=== PATIENT | female | born 1945 | race Caucasian/White ===

== ENCOUNTER 2016-05-13 10:08 | Emergency (ER) | payer MEDICARE ==
[2016-05-13 10:33] VITALS: BP 122/61
--- NOTE | 2016-05-13 12:03 | UC ---
Abdominal Pain Female HPI - HPI Summary HPI Summary: pt presents with c/o of abdominal pain that began 3 weeks ago. Pt was hospitalized at [facility] from 04/28/16 -04/30/16. Pt had prescription for 3 days post hospitalization. reports that her stools have been soft, no blood or mucous, denies fever, vomiting, or nausea. - History of Current Complaint Chief Complaint: UC Stated Complaint: ABD PAIN Time Seen by Provider: 05/13/16 11:19 Hx Obtained From: Patient ?: No Onset/Duration: Gradual Onset, Lasting Weeks Timing: Constant Severity Initially: Mild Severity Currently: Moderate Location: Discrete At: RLQ, Discrete At: LLQ Radiates: Yes Radiates to: RLQ Character: Colicy, Cramping, Dull, Sharp Alleviating Factor(s): Nothing Associated Signs and Symptoms: Positive: Back Pain Allergies/Adverse Reactions: Allergies Allergy/AdvReac Type Severity Reaction Status Date / Time Atorvastatin [From Lipitor] Allergy Severe Muscle Verified 04/16/15 16:57 Ache, Fentanyl Allergy Intermediate Hives Verified 04/16/15 16:57 Iodinated Contrast Media Allergy Intermediate Hives Verified 04/16/15 16:57 [IV CONTRAST DYE] Levofloxacin [From Levaquin] Allergy Intermediate Hives Verified 04/16/15 16:57 Meperidine [From Demerol HCl] Allergy Intermediate Hives Verified 04/16/15 16:57 Home Medications: Home Medications Metoprolol Succinate XL TAB* [Toprol XL TAB*] 50 mg PO DAILY 05/13/16 [History Confirmed 05/13/16] PMH/Surg Hx/FS Hx/Imm Hx Previously Healthy: No - no see PMH Endocrine History Of: Denies: Diabetes, Thyroid Disease Cardiovascular History Of: Reports: Hypertension Denies: Cardiac Disorders Respiratory History Of: Denies: Asthma GI/ History Of: Reports: Gastroesophageal Reflux, Diverticulitis - required hospitalization x 2 last year Neurological History Of: Reports: Migraine - OCCASIONALLY DOES NOT LAST LONG Denies: TIA Psychological History Of: Reports: Depression - ON MEDICATION Denies: Anxiety Cancer History Of: Denies: Lung Cancer - Surgical History Surgical History: Yes Surgery Procedure, Year, and Place: Cholecystectomy. APPENDECTOMY. tubal - Family History Known Family History: Positive: Cardiac Disease - Social History Occupation: Retired Lives: With Family Alcohol Use: Occasionally Substance Use Type: None Smoking Status (MU): Former Smoker Type: Cigarettes Amount Used/How Often: 1/2 PPD Length of Time of Smoking/Using Tobacco: 10 Years Have You Smoked in the Last Year: No When Did the Patient Quit Smoking/Using Tobacco: early - Immunization History Most Recent Influenza Vaccination: April 2015 Most Recent Tetanus Shot: 06/04/13 Review of Systems Constitutional: Fatigue Skin: Negative Eyes: Negative ENT: Negative Respiratory: Negative Cardiovascular: Negative Gastrointestinal: Abdominal Pain Genitourinary: Negative Motor: Negative Neurovascular: Negative Musculoskeletal: Myalgia - low back Neurological: Negative Psychological: Negative All Other Systems Reviewed And Are Negative: Yes Physical Exam Triage Information Reviewed: Yes Appearance: Pain Distress - mild Vital Signs: Initial Vital Signs Temp 98.7 F 05/13/16 10:25 Pulse 70 05/13/16 10:25 Resp 16 05/13/16 10:25 BP 122/61 05/13/16 10:25 Pulse Ox 98 05/13/16 10:25 Vital Signs Reviewed: Yes Neck exam: Normal Respiratory Exam: Normal Cardiovascular Exam: Normal Abdominal Exam: Other Abdomen Description: Positive: Guarding - LLQ, Other: - tenderness LLQ, RLQ Musculoskeletal Exam: Normal Neurological Exam: Normal Psychological Exam: Normal Skin Exam: Normal Abd Pain Female Course/Dx - Course Course Of Treatment: I discussed with the pt the concern for possible diverticulum abscess or worsening of diverticulosis and recommended to be evaluated at the closest ER. Pt agreed and stated she would go by private car. - Differential Dx/Diagnosis Provider Diagnoses: abdominal pain. worsening of diverticulitis - Physician Notification/Consults Discussed Patient Care With: Silvia Parada at [facility] Time Discussed With Above Provider: 12:06 - pt was accpeted at [facility] Instructed by Provider To: Other - pt refused ambulance and will travel by private car Discharge - Discharge Plan Condition: Stable Disposition: AGAINST MEDICAL ADVICE Patient Education Materials: Abdominal Pain (ED) Referrals: Bina Boggs [Primary Care Provider] - Additional Instructions: It has been recommended that you seek more advanced care at the closes Emergency room. The medical history you have provided and your presenting physical findings indicate that you need further testing and possible treatment at a higher level of care facility.
== END 2016-05-13 12:00 | disposition left against medical advice (07) ==
LOC: UCCORT 10:08
DX: K57.92 Diverticulitis of intestine, part unspecified, without perforation or abscess without bleeding (principal); R10.32 Left lower quadrant pain; R10.31 Right lower quadrant pain; Z88.5 Allergy status to narcotic agent; Z88.8 Allergy status to other drugs, medicaments and biological substances; Z91.041 Radiographic dye allergy status; I10 Essential (primary) hypertension; Z90.49 Acquired absence of other specified parts of digestive tract; Z87.891 Personal history of nicotine dependence
CPT/HCPCS: 99212; G0463

== ENCOUNTER 2016-06-27 09:15 | Emergency (ER) | payer MEDICARE ==
[2016-06-27 10:35] VITALS: BP 154/82
--- NOTE | 2016-06-27 11:30 | UC ---
FLU HPI - HPI Summary HPI Summary: BODY ACHES, COUGH, CHILLS, FULLNESS IN EARS AND THROAT DISCOMFORT WITH COUGHING. NO FEVER, AND GRANDSON HAVE HAD POSITIVE FLU SWABS - History of Current Complaint Chief Complaint: UCRespiratory Stated Complaint: SORE THROAT,SINUS,COUGH Time Seen by Provider: 06/27/16 10:53 Hx Obtained From: Patient Onset/Duration: Sudden Onset, Lasting Days, Still Present Severity Currently: Moderate Severity Initially: Moderate Associated Signs & Symptoms: Positive: F/C, Myalgia, Cough, Sore Throat, Nasal Congestion Related Hx: Possible Flu/Infectious Exposure - Risk Factors Influenza Risk Factors: Negative - Allergy/Home Medications Allergies/Adverse Reactions: Allergies Allergy/AdvReac Type Severity Reaction Status Date / Time Atorvastatin [From Lipitor] Allergy Severe Muscle Verified 06/27/16 10:24 Ache, Fentanyl Allergy Intermediate Hives Verified 06/27/16 10:24 Iodinated Contrast Media Allergy Intermediate Hives Verified 06/27/16 10:24 [IV CONTRAST DYE] Levofloxacin [From Levaquin] Allergy Intermediate Hives Verified 06/27/16 10:24 Meperidine [From Demerol HCl] Allergy Intermediate Hives Verified 06/27/16 10:24 Home Medications: Home Medications Ibuprofen TAB* [Advil TAB*] 600 mg PO Q4H PRN 06/27/16 [History Confirmed ] PMH/Surg Hx/FS Hx/Imm Hx Previously Healthy: Yes Endocrine History Of: Denies: Diabetes, Thyroid Disease Cardiovascular History Of: Reports: Hypertension Denies: Cardiac Disorders Respiratory History Of: Denies: Asthma GI/ History Of: Reports: Gastroesophageal Reflux, Diverticulitis - required hospitalization x 2 last year Neurological History Of: Reports: Migraine - OCCASIONALLY DOES NOT LAST LONG Denies: TIA Psychological History Of: Reports: Depression - ON MEDICATION Denies: Anxiety Cancer History Of: Denies: Lung Cancer - Surgical History Surgical History: Yes Surgery Procedure, Year, and Place: Cholecystectomy. APPENDECTOMY. tubal - Family History Known Family History: Positive: Cardiac Disease - Social History Occupation: Employed Full-time Lives: With Family Alcohol Use: Occasionally Substance Use Type: None Smoking Status (MU): Former Smoker Type: Cigarettes Amount Used/How Often: 1/2 PPD Length of Time of Smoking/Using Tobacco: 10 Years Have You Smoked in the Last Year: No When Did the Patient Quit Smoking/Using Tobacco: early - Immunization History Most Recent Influenza Vaccination: April 2015 Most Recent Tetanus Shot: 06/04/13 Review of Systems Constitutional: Chills Skin: Negative Eyes: Negative ENT: Sore Throat, Ear Ache, Nasal Discharge Respiratory: Cough Cardiovascular: Negative Gastrointestinal: Negative Genitourinary: Negative Motor: Negative Neurovascular: Negative Musculoskeletal: Myalgia Neurological: Negative Psychological: Negative All Other Systems Reviewed And Are Negative: Yes Physical Exam Triage Information Reviewed: Yes Appearance: No Pain Distress, Well-Nourished, Ill-Appearing - MILD Vital Signs: Initial Vital Signs Temp 98.3 F 06/27/16 10:26 Pulse 68 06/27/16 10:26 Resp 18 06/27/16 10:26 BP 154/82 06/27/16 10:26 Pulse Ox 100 06/27/16 10:26 Vital Signs Reviewed: Yes Eye Exam: Normal Eyes: Positive: Conjunctiva Clear ENT: Positive: Hearing grossly normal, Pharynx normal, Nasal congestion, TM bulging, TM dull Dental Exam: Normal Neck exam: Normal Neck: Positive: Supple, Nontender, No Lymphadenopathy Respiratory Exam: Normal Respiratory: Positive: Chest non-tender, Lungs clear, Normal breath sounds, No respiratory distress, No accessory muscle use Cardiovascular Exam: Normal Cardiovascular: Positive: RRR, No Murmur, Pulses Normal Abdominal Exam: Normal Abdomen Description: Positive: Nontender, No Organomegaly Musculoskeletal Exam: Normal Musculoskeletal: Positive: Strength Intact Neurological Exam: Normal Psychological Exam: Normal Psychological: Positive: Normal Response To Family Skin Exam: Normal Flu Course/Dx - Differential Dx/Diagnosis Differential Diagnosis/HQI/PQRI: Influenza, RSV, Upper Respiratory Infection Provider Diagnoses: INFLUENZA Discharge - Discharge Plan Condition: Stable Disposition: HOME Prescriptions: Oseltamivir CAP* [Tamiflu CAP*] 75 mg PO BID #10 cap Patient Education Materials: Influenza (ED) Referrals: Bina Boggs [Primary Care Provider] -
== END 2016-06-27 11:32 | disposition home or self-care (01) ==
LOC: UCCORT 09:15
DX: J11.1 Influenza due to unidentified influenza virus with other respiratory manifestations (principal); Z88.1 Allergy status to other antibiotic agents; Z88.5 Allergy status to narcotic agent; Z88.8 Allergy status to other drugs, medicaments and biological substances; Z91.041 Radiographic dye allergy status; Z90.49 Acquired absence of other specified parts of digestive tract; Z87.891 Personal history of nicotine dependence
CPT/HCPCS: 99212; G0463

== ENCOUNTER 2016-07-04 10:06 | Emergency (ER) | payer MEDICARE ==
[2016-07-04 11:14] VITALS: BP 152/80
--- NOTE | 2016-07-04 11:29 | UC ---
Ear Complaint HPI - HPI Summary HPI Summary: Stubbing pain in right side of head just above ear, fleeting episodes of stabbing discomfort for 3 days, recently had flu and d/c tamiflu on Saturday - History of Current Complaint Chief Complaint: UCEar Stated Complaint: HEAD/RIGHT EAR PAIN Time Seen by Provider: 07/04/16 11:17 Hx Obtained From: Patient ?: No Onset/Duration: Sudden Onset, Lasting Days - 3, Still Present Severity Initially: Moderate Severity Currently: Moderate Pain Intensity: 8 Pain Scale Used: 0-10 Numeric Aggravating Factors: Nothing Alleviating Factors: Nothing Associated Signs/Symptoms: Negative: Discharge, Hearing Loss, Foreign Body Sensation, Trauma to Ear, Swelling @, URI Symptoms - Allergies/Home Medications Allergies/Adverse Reactions: Allergies Allergy/AdvReac Type Severity Reaction Status Date / Time Atorvastatin [From Lipitor] Allergy Severe Muscle Verified 07/04/16 11:09 Ache, Fentanyl Allergy Intermediate Hives Verified 07/04/16 11:09 Iodinated Contrast Media Allergy Intermediate Hives Verified 07/04/16 11:09 [IV CONTRAST DYE] Levofloxacin [From Levaquin] Allergy Intermediate Hives Verified 07/04/16 11:09 Meperidine [From Demerol HCl] Allergy Intermediate Hives Verified 07/04/16 11:09 PMH/Surg Hx/FS Hx/Imm Hx Previously Healthy: No Endocrine History Of: Denies: Diabetes, Thyroid Disease Cardiovascular History Of: Reports: Hypertension Denies: Cardiac Disorders Respiratory History Of: Denies: Asthma GI/ History Of: Reports: Gastroesophageal Reflux, Diverticulitis - required hospitalization x 2 last year Neurological History Of: Reports: Migraine - OCCASIONALLY DOES NOT LAST LONG Denies: TIA Psychological History Of: Reports: Depression - ON MEDICATION Denies: Anxiety Cancer History Of: Denies: Lung Cancer - Surgical History Surgical History: Yes Surgery Procedure, Year, and Place: Cholecystectomy. APPENDECTOMY. tubal - Family History Known Family History: Positive: Cardiac Disease - Social History Occupation: Retired Lives: With Family Alcohol Use: Occasionally Substance Use Type: None Smoking Status (MU): Former Smoker Type: Cigarettes Amount Used/How Often: 1/2 PPD Length of Time of Smoking/Using Tobacco: 10 Years Have You Smoked in the Last Year: No When Did the Patient Quit Smoking/Using Tobacco: early - Immunization History Most Recent Influenza Vaccination: April 2015 Most Recent Tetanus Shot: 06/04/13 Review of Systems Constitutional: Negative Skin: Negative, Other - no rash present Eyes: Negative ENT: Negative Respiratory: Negative Cardiovascular: Negative Gastrointestinal: Negative Genitourinary: Negative Motor: Negative Neurovascular: Negative Musculoskeletal: Negative Neurological: Headache - right side of head just above pinna Psychological: Negative All Other Systems Reviewed And Are Negative: Yes Physical Exam Triage Information Reviewed: Yes Appearance: Well-Appearing, Well-Nourished, Pain Distress Vital Signs: Initial Vital Signs Temp 97.7 F 07/04/16 11:04 Pulse 67 07/04/16 11:04 Resp 14 07/04/16 11:04 BP 152/80 07/04/16 11:04 Pulse Ox 95 07/04/16 11:04 Vital Signs Reviewed: Yes Eye Exam: Normal Eyes: Positive: Conjunctiva Clear ENT Exam: Normal ENT: Positive: Normal ENT inspection, Hearing grossly normal, Pharynx normal, TMs normal. Negative: Nasal congestion, Nasal drainage, Tonsillar swelling, Tonsillar exudate, Trismus, Muffled/hoarse voice Dental Exam: Normal Neck exam: Normal Neck: Positive: Supple, Nontender, No Lymphadenopathy Respiratory Exam: Normal Respiratory: Positive: Chest non-tender, Lungs clear, Normal breath sounds, No respiratory distress, No accessory muscle use Cardiovascular Exam: Normal Cardiovascular: Positive: RRR, No Murmur, Pulses Normal, Brisk Capillary Refill Musculoskeletal Exam: Normal Musculoskeletal: Positive: Strength Intact, ROM Intact, No Edema Neurological Exam: Normal Neurological: Positive: Alert, Muscle Tone Normal Psychological Exam: Normal Skin Exam: Normal Ear Complaint Course/Dx - Course Course Of Treatment: tegretal, Neurology appointment made for patient, follow with Neurology as planned, as well pcp for BP recheck - Differential Dx/Diagnosis Differential Diagnosis/HQI/PQRI: Otitis Externa, Otitis Media, Trigeminal Nueralgia, URI, Other - occipital neuralgia Provider Diagnoses: Trigeminal/occipital neuralgia Discharge - Discharge Plan Condition: Stable Disposition: HOME Prescriptions: carBAMazepine TAB(*) [TEGretol TAB(*)] 200 mg PO BID #30 tab Patient Education Materials: Trigeminal Neuralgia (ED) Referrals: [facility] [Provider Group] - 07/06/16 2:00 pm Bina Boggs [Primary Care Provider] - Additional Instructions: i ACTUAL BELIEVE YOU LIKELY HAVE OCCIPITAL NEURALGIA, SIMILAR ILLNESS IN A DIFFERENT NERVE
== END 2016-07-04 11:58 | disposition home or self-care (01) ==
LOC: UCCORT 10:06
DX: G50.0 Trigeminal neuralgia (principal); M54.81 Occipital neuralgia; F32.9 Major depressive disorder, single episode, unspecified; Z90.49 Acquired absence of other specified parts of digestive tract; Z88.1 Allergy status to other antibiotic agents; Z88.5 Allergy status to narcotic agent; Z91.041 Radiographic dye allergy status
CPT/HCPCS: 99212; G0463

== ENCOUNTER 2017-02-03 19:16 | Emergency (ER) | payer MEDICARE ==
[2017-02-03 19:22] VITALS: BP 164/111
--- NOTE | 2017-02-03 19:27 | UC ---
Headache HPI - HPI Summary HPI Summary: Has occipital neuralgia, started to get a lot worse this morning. Took a larger dose of tegretol without any relief. Persistent pain. - History Of Current Complaint Stated Complaint: SEVERE HEAD PAIN Time Seen by Provider: 02/03/17 19:17 Hx Obtained From: Patient Onset/Duration: Sudden Onset - this morning., Worse Since - this morning. Onset Of Symptoms: Sudden Currently Pain Is: Severe Character: Sharp - shooting electrical pain. Location of Headache: Parietal - on the right side. Aggravating Factor(s): Nothing Allevating Factor(s): Nothing, Medication - Had worked with no recurrence since the onset 3-4 months ago until today. Associated Signs And Symptoms: Positive: Negative Related History: Similar Episode/DX As: - occipital neuralgia. - Risk Factors SAH Risk Factors: Hypertension - Allergies/Home Medications Allergies/Adverse Reactions: Allergies Allergy/AdvReac Type Severity Reaction Status Date / Time Atorvastatin [From Lipitor] Allergy Severe Muscle Verified 02/03/17 19:22 Ache, Fentanyl Allergy Intermediate Hives Verified 02/03/17 19:22 Iodinated Contrast Media Allergy Intermediate Hives Verified 02/03/17 19:22 [IV CONTRAST DYE] Levofloxacin [From Levaquin] Allergy Intermediate Hives Verified 02/03/17 19:22 Meperidine [From Demerol HCl] Allergy Intermediate Hives Verified 02/03/17 19:22 PMH/Surg Hx/FS Hx/Imm Hx Cardiovascular History: Hypertension - Surgical History Surgical History: Yes Surgery Procedure, Year, and Place: Cholecystectomy. APPENDECTOMY. tubal - Family History Known Family History: Positive: Cardiac Disease, Hypertension, Diabetes - Social History Occupation: Retired Lives: With Family Alcohol Use: Occasionally Substance Use Type: None Smoking Status (MU): Former Smoker Type: Cigarettes Amount Used/How Often: 1/2 PPD Length of Time of Smoking/Using Tobacco: 10 Years Have You Smoked in the Last Year: No When Did the Patient Quit Smoking/Using Tobacco: early - Immunization History Most Recent Influenza Vaccination: April 2015 Most Recent Tetanus Shot: 06/04/13 Review of Systems Neurological: Headache Is Patient Immunocompromised?: No All Other Systems Reviewed And Are Negative: Yes Physical Exam Triage Information Reviewed: Yes Appearance: Well-Appearing, Well-Nourished, Pain Distress - severe pain with recurrent right occipital pain Vital Signs Reviewed: Yes Eyes: Positive: Conjunctiva Clear ENT: Positive: Pharynx normal, TMs normal Neck exam: Normal Neck: Positive: Supple Respiratory Exam: Normal Cardiovascular Exam: Normal Musculoskeletal Exam: Normal Neurological Exam: Normal Psychological Exam: Normal Skin: Positive: Other - Erythema on the right occipital/ parietal scalp Re-Evaluation - Re-Evaluation First Eval Re-Evaluation Time: 20:24 - Crying with pain. Change: Unchanged Headache Course/Dx - Differential Dx/Diagnosis Differential Diagnosis/HQI/PQRI: Subarachnoid Hemorrhage, Temporal Arteritis, Tension Headache Provider Diagnoses: Occipital neuralgia - Physician Notifications Discussed Patient Care With: Estefani Roque Time Discussed With Above Provider: 20:28 Instructed by Provider To: Transfer Discharge - Discharge Plan Condition: Stable Disposition: TRANS HIGHER LVL OF CARE FAC Additional Instructions: Please head directly to the [facility] Emergency Room.
[2017-02-03] MEDS ORDERED: methylPREDNISolone 125 MG* 2 ML VIAL IM ONE (19:36)
[2017-02-03] MEDS ORDERED: Ketorolac INJ* 60 MG/2 ML VIAL IM ONE (19:36)
== END 2017-02-03 20:39 | disposition short-term general hospital (02) ==
LOC: UCCORT 19:16
DX: M54.81 Occipital neuralgia (principal); I10 Essential (primary) hypertension; Z88.8 Allergy status to other drugs, medicaments and biological substances; Z88.1 Allergy status to other antibiotic agents; Z88.5 Allergy status to narcotic agent; Z91.041 Radiographic dye allergy status; Z87.891 Personal history of nicotine dependence
CPT/HCPCS: 96372; 99212; G0463; J1885; J2930

== ENCOUNTER 2017-04-02 11:50 | Emergency (ER) | payer MEDICARE ==
[2017-04-02 13:19] VITALS: BP 154/91
--- NOTE | 2017-04-02 13:25 | UC ---
Skin Complaint HPI - HPI Summary HPI Summary: Itchy rash on left leg and right posterior low back---no relief with Vistaril and Triamcinolone for 2 weeks - History of Current Complaint Chief Complaint: UCSkin Time Seen by Provider: 04/02/17 13:12 Stated Complaint: SKIN COMPLAINT Hx Obtained From: Patient ?: No Onset/Duration: Sudden Onset, Lasting Weeks - 2, Still Present Onset Severity: Moderate Current Severity: Moderate Location: Diffuse Character: Pruritus, Redness Aggravating Factor(s): Nothing Alleviating Factor(s): Nothing Associated Signs & Symptoms: Positive: Negative - Allergy/Home Medications Allergies/Adverse Reactions: Allergies Allergy/AdvReac Type Severity Reaction Status Date / Time Atorvastatin [From Lipitor] Allergy Severe Muscle Verified 04/02/17 13:08 Ache, Fentanyl Allergy Intermediate Hives Verified 04/02/17 13:08 Iodinated Contrast Media Allergy Intermediate Hives Verified 04/02/17 13:08 [IV CONTRAST DYE] Levofloxacin [From Levaquin] Allergy Intermediate Hives Verified 04/02/17 13:08 Meperidine [From Demerol HCl] Allergy Intermediate Hives Verified 04/02/17 13:08 Home Medications: Home Medications Triamcinolone 0.5% CREAM(NF) [Triamcinolone 0.5% CREAM*] 1 applic BID 04/02/17 [ History Confirmed 04/02/17] hydrOXYzine HCL TAB* [Atarax 10 MG TAB*] 1 tab TID PRN 04/02/17 [History Confirmed 04/02/17] Review of Systems Constitutional: Negative Skin: Rash Eyes: Negative ENT: Negative Respiratory: Negative Cardiovascular: Negative Gastrointestinal: Negative Genitourinary: Negative Motor: Negative Neurovascular: Negative Musculoskeletal: Negative Neurological: Negative Psychological: Negative Is Patient Immunocompromised?: No All Other Systems Reviewed And Are Negative: Yes PMH/Surg Hx/FS Hx/Imm Hx Previously Healthy: No Cardiovascular History: Hypertension GI/ History: Gastroesophageal Reflux Psychological History: Depression - Surgical History Surgical History: Yes Surgery Procedure, Year, and Place: Cholecystectomy. APPENDECTOMY. tubal - Family History Known Family History: Positive: Cardiac Disease, Hypertension, Diabetes - Social History Occupation: Retired Lives: With Family Alcohol Use: Occasionally Substance Use Type: None Smoking Status (MU): Former Smoker Type: Cigarettes Amount Used/How Often: 1/2 PPD Length of Time of Smoking/Using Tobacco: 10 Years Have You Smoked in the Last Year: No When Did the Patient Quit Smoking/Using Tobacco: early - Immunization History Most Recent Influenza Vaccination: not yet Most Recent Tetanus Shot: 06/04/13 Physical Exam Triage Information Reviewed: Yes Appearance: Well-Appearing, No Pain Distress, Well-Nourished Vital Signs: Initial Vital Signs Temp 97.3 F 04/02/17 13:11 Pulse 60 04/02/17 13:11 Resp 16 04/02/17 13:11 BP 154/91 04/02/17 13:11 Pulse Ox 98 04/02/17 13:11 Vital Signs Reviewed: Yes Eye Exam: Normal Eyes: Positive: Conjunctiva Clear ENT Exam: Normal ENT: Positive: Normal ENT inspection, Hearing grossly normal, Pharynx normal. Negative: Nasal congestion, Nasal drainage, Trismus, Muffled voice, Hoarse voice Dental Exam: Normal Neck exam: Normal Neck: Positive: Supple, Nontender Respiratory Exam: Normal Respiratory: Positive: Chest non-tender, No respiratory distress, No accessory muscle use Cardiovascular Exam: Normal Cardiovascular: Positive: Pulses Normal, Brisk Capillary Refill Musculoskeletal Exam: Normal Musculoskeletal: Positive: Strength Intact, ROM Intact, No Edema Neurological Exam: Normal Neurological: Positive: Alert, Muscle Tone Normal Psychological Exam: Normal Skin Exam: Normal Skin: Positive: rashes Course/Dx - Course Course Of Treatment: pepcid, claritin, prednisone follow with gang pusher - Diagnoses Provider Diagnoses: Idopathic urticaria Discharge - Discharge Plan Condition: Stable Disposition: HOME Prescriptions: Famotidine TAB 40 MG(NF) [Pepcid TAB 40 MG(NF)] 40 mg PO DAILY #30 tab Loratadine [Claritin 10 MG CAP] 10 mg PO BEDTIME #30 cap predniSONE TAB* [Deltasone TAB*] 40 mg PO DAILY #15 tab Patient Education Materials: Urticaria (ED), Hypertension (ED), Itchy Skin (ED) Referrals: Kit Villarreal MD [Medical Doctor] - 1 Week Bina Bgogs [Primary Care Provider] - 2 Weeks
== END 2017-04-02 14:12 | disposition home or self-care (01) ==
LOC: UCCORT 11:50
DX: L50.1 Idiopathic urticaria (principal); I10 Essential (primary) hypertension; K21.9 Gastro-esophageal reflux disease without esophagitis; F32.9 Major depressive disorder, single episode, unspecified
CPT/HCPCS: 99212; G0463

== ENCOUNTER 2018-12-16 19:30 | Emergency (ER) | payer MEDICARE ==
[2018-12-16 20:11] VITALS: BP 183/87
--- NOTE | 2018-12-16 20:24 | UC ---
Lower Extremity/Ankle HPI - HPI Summary HPI Summary: One day post op left bunionectomy; comes today due to increase in pain in the foot along with continued bleeding. She was seen in the ER last night due to bleeding through the dressing and increasing pain. Wound was assessed and re- dressed, and orthoglass splint and dressing re-applied. She is using oxycodone for pain, but dislikes it due to sedation. Last dose taken was about 8.5 hours ago. She has a sore throat, no cough or shortness of breath, and no increasing calf pain. She states that the splinting is too tight and causing pain. - History of Current Complaint Chief Complaint: UCLowerExtremity Stated Complaint: ST,POST OP LEFT FOOT PAIN/BLEEDING,HBP Time Seen by Provider: 12/16/18 20:13 Hx Obtained From: Patient Onset/Duration: Gradual Onset, Lasting Days - 2 Severity Initially: Moderate Severity Currently: Moderate Pain Intensity: 7 Aggravating Factor(s): Standing Alleviating Factor(s): Rest Able to Bear Weight: Yes - putting weight on the heel of her CAM walker - Risk Factors Gout Risk Factors: Negative DVT Risk Factors: Recent Surgery Septic Arthritis Risk Factor: Negative - Allergies/Home Medications Allergies/Adverse Reactions: Allergies Allergy/AdvReac Type Severity Reaction Status Date / Time atorvastatin [From Lipitor] Allergy Muscle Ache Verified 12/16/18 20:13 fentanyl Allergy Hives Verified 12/16/18 20:13 Iodinated Contrast Media Allergy Hives Verified 12/16/18 20:13 levofloxacin [From Levaquin] Allergy Hives Verified 12/16/18 20:13 meperidine [From Demerol] Allergy Hives Verified 12/16/18 20:13 Home Medications: Home Medications Lisinopril TAB* [Prinivil TAB*] 5 mg PO DAILY 12/16/18 [History Confirmed ] Metoprolol Tartrate TAB* [Lopressor TAB*] 1 tab QPM 12/16/18 [History Confirmed 12/16/18] oxyCODONE/Acetamin 5/325 MG* [Percocet 5/325 TAB*] 1 tab Q4HR PRN 12/16/18 [ History Confirmed 12/16/18] PMH/Surg Hx/FS Hx/Imm Hx Previously Healthy: Yes Cardiovascular History: Hypertension - Surgical History Surgical History: Yes Surgery Procedure, Year, and Place: Cholecystectomy. APPENDECTOMY. tubal. LEFT bunionectomy. partial colectomy d/t diverticulitis - Family History Known Family History: Positive: Cardiac Disease, Hypertension, Diabetes - Social History Occupation: Retired Lives: With Family Alcohol Use: None Substance Use Type: None Smoking Status (MU): Former Smoker Type: Cigarettes Amount Used/How Often: 1/2 PPD Length of Time of Smoking/Using Tobacco: 10 Years Have You Smoked in the Last Year: No When Did the Patient Quit Smoking/Using Tobacco: early - Immunization History Most Recent Influenza Vaccination: not yet Most Recent Tetanus Shot: UTD Review of Systems All Other Systems Reviewed And Are Negative: Yes Constitutional: Positive: Fever, Fatigue ENT: Positive: Sore Throat Respiratory: Negative: Shortness Of Breath, Cough Gastrointestinal: Positive: Negative Genitourinary: Positive: Negative Motor: Positive: Decreased ROM Musculoskeletal: Positive: Arthralgia, Myalgia Physical Exam Triage Information Reviewed: Yes Appearance: Ill-Appearing - flushed, looks fatigued., Pain Distress - moderate. Vital Signs: Initial Vital Signs Temp 100.1 F 12/16/18 19:56 Pulse 91 12/16/18 19:56 Resp 16 12/16/18 19:56 BP 183/87 12/16/18 19:56 Pulse Ox 99 12/16/18 19:56 ENT: Positive: Pharyngeal erythema - posterior Neck: Positive: Supple, Nontender, No Lymphadenopathy Respiratory: Positive: Lungs clear, Normal breath sounds Cardiovascular: Positive: RRR, No Murmur Musculoskeletal Exam: Other - left foot wound medial border is clean, without discharge. Small amount of blood on dressing. Removed dressing, repostioned dressing, orthoglass splint and re-applied cam bood. Moderate swelling and bruising mid across mid foot. Toes warm and well perfused Musculoskeletal: Positive: Strength Intact, No Edema, Other: - negative Harsha's , calf is soft. Psychological Exam: Other - mildly anxious. Skin Exam: Other - foot with bruising, mildly warm, tender. Lower Extremity Course/Dx - Course Course Of Treatment: Call placed to Dr. Olivo (orthopedics, based in [place]) and no call was returned. Wound is clean and foot does not look infected. Continue analgesics, monitor fever. Mrs. Dominguez must call ortho in the morning if she has persistent fever. - Differential Dx/Diagnosis Differential Diagnosis/HQI/PQRI: Cellulitis, Infection, Other - post op fever. Provider Diagnosis: Postoperative pain, Foot pain, left Discharge ED - Sign-Out/Discharge Documenting (check all that apply): Patient Departure All imaging exams completed and their final reports reviewed: No Studies - Discharge Plan Condition: Stable Disposition: HOME Patient Education Materials: Fever in Adults (ED) Referrals: Bina Boggs [Primary Care Provider] - Additional Instructions: Your dressing was re-applied. Continue use of oxycodone. You had an additional 650mg of acetaminophen tonight, and can use up to a total of 300mg per day (need to add up amount in the number of doses of oscycodne with acetaminophen which you take.). Keep your leg elevated. YOU MUST CALL YOUR SURGEON TOMORROW TO REPORT ANY PERSISTENT FEVER AND ANY WORSENING PAIN. - Billing Disposition and Condition Condition: STABLE Disposition: Home
[2018-12-16] MEDS ORDERED: Acetaminophen TAB* 325 MG PO ONE (22:01)
== END 2018-12-16 22:19 | disposition home or self-care (01) ==
LOC: UCCORT 19:30
DX: G89.18 Other acute postprocedural pain (principal); M79.672 Pain in left foot; I10 Essential (primary) hypertension; Z87.891 Personal history of nicotine dependence
CPT/HCPCS: 99212; A9270-GY; G0463